=== PATIENT | female | born 1960 | race Caucasian/White ===

== ENCOUNTER 2018-04-13 18:06 | Emergency (ER) | payer MEDICAID ==
[2018-04-13 18:07] VITALS: BMI 29.2
[2018-04-13 18:13] VITALS: TEMP 98.9
--- NOTE | 2018-04-13 18:24 | ED PDOC ---
Arrival/HPI - General Chief Complaint: Upper Extremity Problem/Injury Time Seen by Provider: 04/13/18 18:08 Historian: Patient, Family (Daughter translates) - History of Present Illness Time/Duration: Prior to Arrival Symptom Onset: Sudden Symptom Course: Unchanged Quality: Aching Severity Level: Mild Associated Symptoms (Text): 04/13/18 18:21 Patient was standing on a couch changing the curtain rods when she fell injuring her left ankle and her left arm. No head trauma or loss of consciousness. No neck or back pain. No chest pain. No abdominal pain. Past Medical History - Infectious Disease Hx of Infectious Diseases: None - Tetanus Immunization Tetanus Immunization: Unknown - Cardiac Hx Cardiac Disorders: Yes Hx Hypertension: Yes - Pulmonary Hx Respiratory Disorders: No - Neurological Hx Neurological Disorder: No - HEENT Hx HEENT Disorder: No - Renal Hx Renal Disorder: No - Endocrine/Metabolic Hx Endocrine Disorders: Yes Hx Diabetes Mellitus Type 2: Yes - Hematological/Oncological Hx Blood Disorders: No - Integumentary Hx Dermatological Disorder: No - Musculoskeletal/Rheumatological Hx Musculoskeletal Disorders: No - Gastrointestinal Hx Gastrointestinal Disorders: No - Genitourinary/Gynecological Hx Genitourinary Disorders: No - Psychiatric Hx Psychophysiologic Disorder: No Hx Substance Use: No - Surgical History Hx Mastectomy: Yes Hx Vascular Access Device: Yes - Suicidal Assessment Feels Threatened In Home Enviroment: No Family/Social History - Physician Review Nursing Documentation Reviewed: Yes Family/Social History: Unknown Family HX Smoking Status: Former Smoker Hx Alcohol Use: No Hx Substance Use: No Hx Substance Use Treatment: No Allergies/Home Meds Allergies/Adverse Reactions: Allergies No Known Allergies Allergy (Verified 04/13/18 18:08) Home Medications: Home Meds Medication Instructions Recorded Confirmed Unobtainable 04/13/18 04/13/18 Review of Systems - Physician Review All systems were reviewed & negative as marked: Yes Physical Exam Vital Signs Temp Pulse Resp BP Pulse Ox 04/13/18 18:09 98.9 F 71 17 138/80 96 Temperature: Afebrile Blood Pressure: Normal Pulse: Regular Respiratory Rate: Normal Appearance: Positive for: Well-Appearing, Non-Toxic, Comfortable, Other ( Patient appears comfortable and in no distress.) Pain Distress: Mild Mental Status: Positive for: Alert and Oriented X 3 - Systems Exam Head: Present: Atraumatic, Normocephalic Neck: Present: Normal Range of Motion. No: MIDLINE TENDERNESS, Paraspinal Tenderness Respiratory/Chest: No: Tender to Palpation Abdomen: No: Tenderness, Distention Back: Present: Normal Inspection. No: CVA Tenderness, Midline Tenderness, Paraspinal Tenderness Upper Extremity: Present: Normal Inspection, Normal ROM, NORMAL PULSES, Tenderness, Neurovascularly Intact, Other (Left lateral shoulder is tender with no swelling and no skin changes and full range of motion. Left wrist is tender with no swelling and no skin changes and full range of motion.). No: Cyanosis, Edema, Swelling, Erythema, Deformity Lower Extremity: Present: Normal Inspection, NORMAL PULSES, Normal ROM, Tenderness, Neurovascularly Intact, Other (Left lateral ankle is tender with no swelling and no skin changes and full range of motion. Medial is nontender. The foot is nontender. The knee is nontender.). No: Edema, CALF TENDERNESS, Cyanosis, Dante's Sign, Swelling, Erythema, Deformity Skin: Present: Warm, Dry, Normal Color. No: Rashes Medical Decision Making - RAD Interpretation Radiology Orders: 04/13/18 18:20 ANKLE LEFT 3 VIEWS ROUTINE [RAD] Stat SHOULDER LEFT [RAD] Stat WRIST, LEFT 3 VIEWS [RAD] Stat Wrist 3 view shows no fracture or dislocation. Ankle 3 view shows no fracture or dislocation. Shoulder 3 view shows no fracture or dislocation. - Medication Orders Current Medication Orders: Discontinued Medications Ibuprofen (Motrin Tab) 400 mg PO STAT STA Stop: 04/13/18 18:22 Last Admin: 04/13/18 18:27 Dose: 400 mg MAR Pain/Vitals Document 04/13/18 18:27 LA (Rec: 04/13/18 18:28 LA [id number]) Pain Reassessment Is This A Pain ReAssessment? No Sleep Is patient sleeping during reassessment? No Presence of Pain Presence of Pain Yes Pain Scale Used Pain Scale Used Numeric Location Left, Right or Bilateral Left Pain Location Body Site Arm Intensity 8 Scale Used Numeric Disposition/Present on Arrival - Present on Arrival Any Indicators Present on Arrival: No History of DVT/PE: No History of Uncontrolled Diabetes: Yes Urinary Catheter: No History of Decub. Ulcer: No History Surgical Site Infection Following: None - Disposition Have Diagnosis and Disposition been Completed?: Yes Diagnosis: Ankle sprain, Wrist sprain, Shoulder sprain Disposition: HOME/ ROUTINE Disposition Time: 19:01 Patient Plan: Discharge Condition: GOOD Discharge Instructions (ExitCare): Shoulder Sprain, Ankle Sprain, Wrist Sprain (DC) Additional Instructions: Rest ice and elevation. Tylenol or Advil as directed on bottle as needed. Follow -up with PMD. Follow up in ED as needed. Forms: [employer] (K[place]akh)
[2018-04-13 19:28] VITALS: BP 130/78; PULSE 68; RESP 18; O2SAT 97
--- NOTE | 2018-04-14 12:27 | RAD ---
Date of service: 04/13/2018 PROCEDURE: Left Wrist Radiographs. HISTORY: trauma COMPARISON: None. FINDINGS: BONES: Normal. No fracture. JOINTS: Normal. No dislocation. SOFT TISSUES: Normal. OTHER FINDINGS: None. IMPRESSION: Normal left wrist radiographs.
--- NOTE | 2018-04-14 12:28 | RAD ---
Date of service: 04/13/2018 PROCEDURE: Left Ankle Radiographs. HISTORY: trauma COMPARISON: None FINDINGS: BONES: Normal. No fracture. JOINTS: Normal. No osteoarthritis. Ankle mortise maintained. Talar dome intact SOFT TISSUES: Normal. OTHER FINDINGS: None. IMPRESSION: Normal left ankle radiographs.
--- NOTE | 2018-04-14 12:29 | RAD ---
Date of service: 04/13/2018 PROCEDURE: Radiographs of the Left Shoulder HISTORY: trauma COMPARISON: No prior. FINDINGS: BONES: Normal. No fracture. JOINTS: Normal. Glenohumeral and acromioclavicular joints preserved. No osteoarthritis. SOFT TISSUES: Normal. OTHER FINDINGS: None. IMPRESSION: Normal radiographs of the left shoulder.
== END 2018-04-13 19:26 | disposition home or self-care (01) ==
LOC: ED 18:06
DX: S93.402A Sprain of unspecified ligament of left ankle, initial encounter (principal); S43.402A Unspecified sprain of left shoulder joint, initial encounter; S63.502A Unspecified sprain of left wrist, initial encounter; W08.XXXA Fall from other furniture, initial encounter; E11.9 Type 2 diabetes mellitus without complications; I10 Essential (primary) hypertension; Z87.891 Personal history of nicotine dependence